=== PATIENT | female | born 1985 | race Caucasian/White ===

== ENCOUNTER → 2018-03-10 | Outpatient (CLI) | payer BC ==
--- NOTE | 2018-03-10 22:31 | CT ---
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 CT DLP: 142.7 mGycm Automated exposure control for dose reduction was used. TECHNIQUE: Contiguous high-resolution axial scanning of the temporal bones performed without contras t, coronal reformatted images obtained. FINDINGS: There is no abnormality of visualized intracranial structures by noncontrast thin section. The skull base appears grossly unremarkable. The external auditory canals appear patent. There is abnormal nodular soft tissue measuring 4.9 mm along the left tympanic membrane and manubrium of the malleus. There is nodularity continues as thickening of the more inferior tympanic membrane u p to 2 mm. There is no blunting of the scutum or noah ossicular erosion. No middle ear effusion. Mastoid air cells are well pneumatized. The round and oval windows are normal. There is no abnormality of bony labyrinths. The vestibular aqueduct are well visualized. The facial nerve canal is normal bilaterally. The internal auditory canal and meati are symmetrical bilaterally. There is no evidence of fractures. Paranasal sinuses are pneumatized. Reformatted images confirm above findings. IMPRESSION: 1. Thickening and nodularity of the left tympanic membrane also along the manubrium of the malleus me asuring up to 4.9 mm. Postinflammatory or posttraumatic scar and cholesteatoma are some differential considerations. 2. No other specific abnormality seen.
== END | disposition home or self-care (01) ==
LOC: RADCTMAIN 19:06
PROVIDERS: ATTEND Otolaryngology Plastic Surgery within the Head & Neck
DX: H73.892 Other specified disorders of tympanic membrane, left ear (principal); M89.38 Hypertrophy of bone, other site
CPT/HCPCS: 70480

== ENCOUNTER → 2019-10-10 | Outpatient (CLI) | payer OTHER ==
--- NOTE | 2019-10-10 15:04 | XR ---
EXAMINATION TYPE: XR knee complete LT DATE OF EXAM: 10/10/2019 CLINICAL HISTORY: Left knee pain with no known injury TECHNIQUE: Three views of the left knee are obtained. COMPARISON: None. FINDINGS: There is no acute fracture/dislocation evident in left knee. The tri-compartment joint sp aces appear within normal limits. The overlying soft tissue appears unremarkable. IMPRESSION: There is no acute fracture or dislocation in the left knee.
== END | disposition home or self-care (01) ==
LOC: RADXRMAIN 14:34
PROVIDERS: ATTEND Family Medicine
DX: M25.562 Pain in left knee (principal)

== ENCOUNTER → 2021-07-01 | Outpatient (CLI) | payer OTHER ==
--- NOTE | 2021-07-02 08:13 | US ---
EXAMINATION TYPE: US pelvic complete DATE OF EXAM: 07/01/2021 COMPARISON: NONE CLINICAL HISTORY: 36-year-old female N83.291 Ovarian Cyst. Intermittent pelvic pain with history of o varian cysts, 3, para 3, left ovary and tube removed, 3 c-sections and tubal ligation TECHNIQUE: Transabdominal sonographic images of the pelvis were acquired. Transvaginal sonographic i mages were medically necessary to better assess the following anatomy: endometrium and right ovary Date of LMP: 06/16/2021 FINDINGS: EXAM MEASUREMENTS: Uterus: 7.8 x 3.4 x 4.8 cm Endometrial Stripe: 0.6 cm Right Ovary: 2.7 x 1.9 x 2.9 cm 1. Uterus: anteverted, mildly heterogeneous myometrium, multiple nabothian cysts 2. Endometrium: multiple tiny echogenic foci suggesting calcifications. 3. Right Ovary: Follicular change with a 1.7cm dominant follicle or functional cyst. 4. Left Ovary: surgically absent 5. Bilateral Adnexa: right adnexa: 3.9cm cystic area adjacent to right ovary 6. Posterior cul-de-sac: wnl IMPRESSION: 1. Status post left oophorectomy. 2. Follicular changes in the right ovary. There is a 3.9 cm cyst adjacent to the right ovary, probabl y a paraovarian cyst. Follow-up in 6-8 weeks to reassess. 3. Scattered punctate calcifications along the endometrium could reflect sequela of prior infection o r instrumentation.
== END | disposition home or self-care (01) ==
LOC: RADUSWWP 15:47
PROVIDERS: ATTEND Family Medicine
DX: N83.291 Other ovarian cyst, right side (principal); Z90.721 Acquired absence of ovaries, unilateral
CPT/HCPCS: 76830; 76856